=== PATIENT | male | born 1950 | race Two or more races ===

== ENCOUNTER 2024-10-25 11:19 | Inpatient (IN) | payer OTHER ==
[~2024-10-25] VITALS: Ht 154.9 cm; Wt 54.4 kg
[2024-10-25] MEDS ORDERED: CARBIDOPA-LEVO1 EA10 NGT (11:44)
[2024-10-25] MEDS ORDERED: LIPITOR80 MG PO (11:44)
[2024-10-25] MEDS ORDERED: HORIZANT300 MG (11:44)
[2024-10-25] MEDS ORDERED: GOCOVRI68.5 MG PO (11:45)
[2024-10-25] MEDS ORDERED: 0.9 % SODIUM CHLORIDE 1,000 ML IV ONE (12:15)
[2024-10-25] MEDS ORDERED: FAMOtidine 10 MG/ML (4ML VIAL) IV ONE (12:15)
[2024-10-25] MEDS ORDERED: PIPERACILLIN/TAZOBACTAM SODIUM 3.375 GM VIAL IV ONE ×3 (12:15→21:49)
[2024-10-25] MEDS ORDERED: LEVALBUTEROL HCL 1.25 MG/3 ML SOLUTION IH ONE ×2 (12:15→12:46)
[2024-10-25] MEDS ORDERED: FAMOTIDINE/PF 20 MG/2 ML VIAL ONE ×2 (12:20→21:49)
[2024-10-25] MEDS ORDERED: IPRATROPIUM BROMIDE 0.5 MG/2.5 ML AMPUL.NEB IH ONE ×3 (12:46→23:52)
[2024-10-25 13:25] LABS: BASO % 0.1 % (0.1-1.2); HEMATOCRIT 45.1 % (40.1-51.0); LYMPH # 1.12 (1.18-3.74); LYMPH % 7.9 % (19.3-53.1); MEAN CORPUSCULAR HEMOGLOBIN 29.9 pg (25.6-32.2); MONO % 9.9 % (4.7-12.5); NEUT % 81.7 % (34.0-71.1); PLATELET COUNT 287 K/uL (163-369); RED BLOOD COUNT 5.02 M/uL (4.63-6.08); RED CELL DISTRIBUTION WIDTH 13.7 % (11.6-14.4)
[2024-10-25 13:42] LABS: INR 1.05; PARTIAL THROMBOPLASTIN TIME 25.4 SECONDS (22.0-34.0); PROTHROMBIN TIME 11.4 SECONDS (9.0-11.5)
[2024-10-25 13:43] LABS: ALBUMIN 3.8 gm/dL (3.4-5.0); BILIRUBIN TOTAL 1.42 mg/dL (0.3-1.2); CALCIUM 9.6 mg/dL (8.5-10.1); CREATININE SERUM 1.09 mg/dL (0.70-1.30); GFR 66.31; GLOBULINA 3.8 G/DL (2.4-3.5); POTASSIUM 4.09 mEq/L (3.5-5.1); TOTAL PROTEIN 7.6 gm/dL (6.4-8.2)
[2024-10-25] MEDS ORDERED: LORazepam 2 MG/ML VIAL IV PRN (14:30)
[2024-10-25 14:43] LABS: ABG PH 7.425 (7.35-7.45); ABG PO2 87.5 mmHg (80-100); ABG pCO2 40.1 mmHg (35-45); BASE EXCESS 1.3 mmol/l; BICARBONATE 25.7 mmol/l (23-25); SaO2 96.9 %
[2024-10-25 14:44] LABS: allen test SATISFACTORY; mode ROOM AIR; o2 21 %; puncture site RADIAL LEFT
[2024-10-25] MEDS ORDERED: LevETIRAcetam 500 MG/5 ML VIAL IV SCH (15:45)
[2024-10-25] MEDS ORDERED: LevETIRAcetam 500 MG/5 ML VIAL IV ONE (15:54)
[2024-10-25 17:00] LABS: PH,URINE 5.5 (5.0-8.0); URINE APPEARANCE Turbid; URINE BILIRRUBIN Negative (NEGATIVE); URINE BLOOD Negative; URINE COLOR Yellow; URINE KETONE Trace (NEGATIVE); URINE LEUKOCYTE Negative; URINE NITRATE Negative; URINE PROTEIN 30 (NEGATIVE)
[2024-10-25 17:03] LABS: URINE CAST 3.82 uL (0.0-1.40); URINE EPITHELIAL CELLS 6.4 uL (0.0-38.8); URINE RBC 3.9 uL (0.0-20.8); URINE WBC 7.1 uL (0.0-23.2)
[2024-10-25 17:28] LABS: URINE CRYSTALS MANY /HPF; URINE GLUCOSE 250 MG/DL (NEGATIVE)
[2024-10-25] MEDS ORDERED: 0.9 % SODIUM CHLORIDE 1,000 ML IV SCH (19:45)
[2024-10-25] MEDS ORDERED: FAMOTIDINE/PF 20 MG in 0.9 % SODIUM CHLORIDE 8 ML IV PUSH SCH (19:47)
[2024-10-25] MEDS ORDERED: CARBIDOPA/LEVODOPA 25/100 UDTAB PO SCH (19:48)
[2024-10-25] MEDS ORDERED: ATORVASTATIN CALCIUM 40 MG TABLET PO SCH (19:48)
[2024-10-25] MEDS ORDERED: ASPIRIN 81 MG TAB.CHEW PO SCH (19:53)
[2024-10-25] MEDS ORDERED: ENOXAPARIN SODIUM 40 MG/0.4 ML SYRINGE SUBCUTANEO SCH (19:53)
[2024-10-25] MEDS ORDERED: PIPERACILLIN/TAZOBACTAM SODIUM 3.375 GM in DEXTROSE 5 % IN WATER 100 ML IV SCH (20:00)
[2024-10-25 21:16] LABS: ABG PH 7.417 (7.35-7.45); ABG PO2 129.7 mmHg (80-100); BASE EXCESS 1.7 mmol/l; BICARBONATE 26.4 mmol/l (23-25); Tco2 27.7 mmol/l; allen test SATISFACTORY; mode NASAL CANNULA; o2 28 %; puncture site RADIAL LEFT
[2024-10-25] MEDS ORDERED: ENOXAPARIN SODIUM 40 MG/0.4 ML SYRINGE SUBCUTANEO ONE (21:48)
[2024-10-25 22:00] VITALS: BP 124/60; O2SAT 98
[2024-10-25 23:00] VITALS: BP 122/60; O2SAT 97
[2024-10-25 23:15] VITALS: BP 109/57; O2SAT 98
[2024-10-26] MEDS ORDERED: IPRATROPIUM BROMIDE 0.5 MG/2.5 ML AMPUL.NEB IH SCH (01:00)
[2024-10-26 04:16] VITALS: BP 111/71; O2SAT 100
[2024-10-26 07:18] VITALS: BP 124/68; O2SAT 100
[2024-10-26] MEDS ORDERED: PATIENTS OWN MEDICATION (MEDICAMENTO EN PISO) PO SCH (09:00)
[2024-10-26] MEDS ORDERED: LevETIRAcetam 500 MG/5 ML VIAL IV SCH (09:00)
[2024-10-26] MEDS ORDERED: CHLORHEXIDINE GLUCONATE 120 ML BOTTLE TOP ONE (09:43)
[2024-10-26] MEDS ORDERED: LORazepam 2 MG/ML VIAL IV PRN (11:30)
[2024-10-26 11:55] VITALS: BP 123/62; O2SAT 100
[2024-10-26 15:04] VITALS: BP 128/76
[2024-10-26 20:57] VITALS: BP 134/76; O2SAT 100
[2024-10-26 23:30] VITALS: BP 131/70; O2SAT 100
[2024-10-27 04:00] VITALS: BP 105/66; O2SAT 100
[2024-10-27 06:46] LABS: BASO % 0.3 % (0.1-1.2); EOS # 0.03 (0.04-0.54); EOS % 0.3 % (0.7-7.0); HEMATOCRIT 40.4 % (40.1-51.0); HEMOGLOBIN 13.4 g/dL (13.7-17.5); LYMPH # 1.92 (1.18-3.74); LYMPH % 20.2 % (19.3-53.1); MEAN CORPUSCULAR HEMOGLOBIN 30.2 pg (25.6-32.2); MONO % 9.5 % (4.7-12.5); NEUT # 6.59 (1.56-6.13); NEUT % 69.5 % (34.0-71.1); PLATELET COUNT 229 K/uL (163-369); RED BLOOD COUNT 4.43 M/uL (4.63-6.08); RED CELL DISTRIBUTION WIDTH 13.5 % (11.6-14.4)
[2024-10-27 07:22] LABS: BILIRUBIN TOTAL 1.97 mg/dL (0.3-1.2); CALCIUM 8.6 mg/dL (8.5-10.1); CREATININE SERUM 0.94 mg/dL (0.70-1.30); GFR 78.67; GLOBULINA 2.8 G/DL (2.4-3.5); MAGNESIUM 2.1 mg/dL (1.8-2.4); PHOSPHOROUS 2.7 mg/dL (2.5-4.9); POTASSIUM 3.98 mEq/L (3.5-5.1); TOTAL PROTEIN 5.8 gm/dL (6.4-8.2)
[2024-10-27 07:24] LABS: C-REACTIVE PROTEIN 1.07 MG/DL (0.00-0.29)
[2024-10-27 07:44] VITALS: BP 163/69; O2SAT 100
[2024-10-27] MEDS ORDERED: LevETIRAcetam 500 MG TAB. PO SCH (09:00)
[2024-10-27 12:00] VITALS: BP 164/77; O2SAT 96
[2024-10-27 15:56] VITALS: BP 149/73; O2SAT 95
[2024-10-27 20:00] VITALS: BP 137/68; O2SAT 100
[2024-10-27] MEDS ORDERED: PANTOPRAZOLE SODIUM 40 MG TABLET.DR PO SCH (21:00)
[2024-10-27 23:30] VITALS: BP 151/70; O2SAT 100
[2024-10-28 04:00] VITALS: BP 165/63; O2SAT 100
[2024-10-28 07:26] VITALS: BP 150/70; O2SAT 100
[2024-10-28] MEDS ORDERED: LOSARTAN/HYDROCHLOROTHIAZIDE 1 UDTAB TABLET PO SCH (09:00)
[2024-10-28] MEDS ORDERED: SODIUM CHLORIDE 0.45 % 1,000 ML IV SCH (09:30)
[2024-10-28] MEDS ORDERED: GABAPENTIN 300 MG CAPSULE PO PRN (09:45)
[2024-10-28 11:57] VITALS: BP 128/73; O2SAT 100
[2024-10-28 13:58] LABS: ALBUMIN 3.1 gm/dL (3.4-5.0); BILIRUBIN TOTAL 1.95 mg/dL (0.3-1.2); BILIRUBIN,CONJUGATED 0.41 mg/dL (0.0-0.2); BILIRUBIN,UNCONJUGATED 1.54 mg/dL (0.0-0.6); TOTAL PROTEIN 6.2 gm/dL (6.4-8.2)
[2024-10-28 15:22] VITALS: O2SAT 100
[2024-10-28 18:20] LABS: PH,URINE 6.5 (5.0-8.0); URINE APPEARANCE Clear; URINE BACTERIA 72.2 uL (0.0-1933); URINE BILIRRUBIN Negative (NEGATIVE); URINE BLOOD Large; URINE CAST 2.06 uL (0.0-1.40); URINE COLOR Yellow; URINE GLUCOSE Negative (NEGATIVE); URINE KETONE Negative (NEGATIVE); URINE LEUKOCYTE Moderate; URINE NITRATE Negative; URINE PROTEIN Negative (NEGATIVE); URINE RBC 140.3 uL (0.0-20.8); URINE WBC 110.9 uL (0.0-23.2)
[2024-10-28 18:30] LABS: URINE EPITHELIAL CELLS 0.9 uL (0.0-38.8)
[2024-10-28 18:31] LABS: TYPE CELLS RENAL TUBULAR
[2024-10-28] MEDS ORDERED: PATIENTS OWN MEDICATION (MEDICAMENTO EN PISO) PO SCH (21:00)
[2024-10-28] MEDS ORDERED: RISPERIDONE 1 MG TABLET PO SCH (21:00)
[2024-10-28 21:11] VITALS: BP 141/83; O2SAT 99
[2024-10-29 02:54] VITALS: BP 119/70
[2024-10-29 09:43] VITALS: BP 146/82; O2SAT 96
[2024-10-29 16:58] VITALS: BP 122/78; O2SAT 98
[2024-10-30] VITALS: BP 119/78; O2SAT 97
[2024-10-30 07:58] LABS: ALBUMIN 3.2 gm/dL (3.4-5.0); BILIRUBIN TOTAL 1.55 mg/dL (0.3-1.2); CREATININE SERUM 0.88 mg/dL (0.70-1.30); GFR 84.89; GLOBULINA 3.3 G/DL (2.4-3.5); POTASSIUM 3.59 mEq/L (3.5-5.1); TOTAL PROTEIN 6.5 gm/dL (6.4-8.2)
[2024-10-30 08:53] VITALS: BP 95/60
[2024-10-30] MEDS ORDERED: LORazepam 2 MG/ML VIAL IV PRN (13:09)
[2024-10-30 16:57] VITALS: BP 134/82; O2SAT 94
[2024-10-30] MEDS ORDERED: ACETAMINOPHEN 500 MG GEL..CAP PO PRN (23:00)
[2024-10-31] VITALS: BP 115/71; O2SAT 95
[2024-10-31 08:37] VITALS: BP 147/90
[2024-10-31 16:44] VITALS: BP 118/75; O2SAT 98
[2024-11-01] VITALS: BP 114/73; O2SAT 96
[2024-11-01 07:00] VITALS: BP 160/86; O2SAT 98
[2024-11-01 16:40] VITALS: BP 135/82; O2SAT 96
[2024-11-02 00:08] VITALS: BP 146/90; O2SAT 95
[2024-11-02 05:46] LABS: COVID-19 AG NEGATIVE (NEGATIVE)
[2024-11-02 07:00] VITALS: BP 109/69; O2SAT 96
[2024-11-02 09:56] VITALS: BP 140/77
[2024-11-02 16:57] VITALS: BP 130/70; O2SAT 94
[2024-11-03 01:18] VITALS: BP 116/75; O2SAT 97
[2024-11-03 06:20] LABS: BASO % 0.7 % (0.1-1.2); EOS # 0.12 (0.04-0.54); EOS % 1.6 % (0.7-7.0); HEMATOCRIT 46.4 % (40.1-51.0); HEMOGLOBIN 15.6 g/dL (13.7-17.5); LYMPH # 2.58 (1.18-3.74); LYMPH % 34.8 % (19.3-53.1); MEAN CORPUSCULAR HEMOGLOBIN 30.2 pg (25.6-32.2); MONO # 0.79 (0.24-0.82); MONO % 10.7 % (4.7-12.5); NEUT # 3.85 (1.56-6.13); NEUT % 51.9 % (34.0-71.1); PLATELET COUNT 279 K/uL (163-369); RED BLOOD COUNT 5.16 M/uL (4.63-6.08); RED CELL DISTRIBUTION WIDTH 12.9 % (11.6-14.4)
[2024-11-03 06:48] LABS: ALBUMIN 3.2 gm/dL (3.4-5.0); BILIRUBIN TOTAL 0.72 mg/dL (0.3-1.2); CALCIUM 8.9 mg/dL (8.5-10.1); CREATININE SERUM 0.98 mg/dL (0.70-1.30); GFR 74.97; GLOBULINA 3.5 G/DL (2.4-3.5); MAGNESIUM 1.8 mg/dL (1.8-2.4); PHOSPHOROUS 3.4 mg/dL (2.5-4.9); POTASSIUM 4.11 mEq/L (3.5-5.1); TOTAL PROTEIN 6.7 gm/dL (6.4-8.2)
[2024-11-03 06:49] LABS: C-REACTIVE PROTEIN 0.65 MG/DL (0.00-0.29)
[2024-11-03] MEDS ORDERED: LIPITOR40 M1 PO (07:07)
[2024-11-03] MEDS ORDERED: LOSARTAN-HCTZ1 EACH PO (07:08)
[2024-11-03] MEDS ORDERED: ADULT ASPIRIN81 MG PO (07:08)
[2024-11-03] MEDS ORDERED: KEPPRA500 MG PO (07:09)
[2024-11-03] MEDS ORDERED: PANTOPRAZOLE SO40 MG PO (07:09)
[2024-11-03] MEDS ORDERED: POM (MEDICAMENTO EN PO (07:09)
[2024-11-03 09:38] VITALS: BP 122/83; O2SAT 99
== END 2024-11-03 12:26 | disposition home or self-care (01) | DRG 100 ==
LOC: ER 11:19 → ICU-2 21:35 → ICU 10-26 04:14 → MEDJ 10-28 20:32 → MEDI 10-29 12:52
PROVIDERS: General Practice; Internal Medicine; Internal Medicine Infectious Disease; ADMIT Internal Medicine; ATTEND Internal Medicine
PROC: B345ZZZ Ultrasonography of Bilateral Common Carotid Arteries (ICD-10-PCS; principal; 2024-10-25)
PROC: B348ZZZ Ultrasonography of Bilateral Internal Carotid Arteries (ICD-10-PCS; 2024-10-25)
PROC: B246ZZZ Ultrasonography of Right and Left Heart (ICD-10-PCS; 2024-10-25)
PROC: B020ZZZ Computerized Tomography (CT Scan) of Brain (ICD-10-PCS; 2024-10-25)
PROC: BB24ZZZ Computerized Tomography (CT Scan) of Bilateral Lungs (ICD-10-PCS; 2024-10-25)
PROC: 3E0F7GC Introduction of Other Therapeutic Substance into Respiratory Tract, Via Natural or Artificial Opening (ICD-10-PCS; 2024-10-26)
PROC: 4A12X4Z Monitoring of Cardiac Electrical Activity, External Approach (ICD-10-PCS; 2024-10-26)
PROC: BW40ZZZ Ultrasonography of Abdomen (ICD-10-PCS; 2024-10-27)
PROC: B020ZZZ Computerized Tomography (CT Scan) of Brain (ICD-10-PCS; 2024-10-27)
DX: G40.89 Other seizures (principal); J69.0 Pneumonitis due to inhalation of food and vomit; R65.10 Systemic inflammatory response syndrome (SIRS) of non-infectious origin without acute organ dysfunction; G20.A1 Parkinson's disease without dyskinesia, without mention of fluctuations; R45.1 Restlessness and agitation; Z96.82 Presence of neurostimulator